=== PATIENT | male | born 1940 | race Caucasian/White ===

== ENCOUNTER 2022-08-14 15:03 | Emergency (ER) | payer MEDICARE, SELFPAY ==
[2022-08-14 15:06] VITALS: BP 118/73; PULSE 66; RESP 16; TEMP 36.4; O2SAT 95; BMI 26.9
--- NOTE | 2022-08-14 15:37 | CTR_ITS ---
PROCEDURE INFORMATION: Exam: CT Abdomen And Pelvis With Contrast Exam date and time: 08/14/2022 5:46 PM Age: 82 years old Clinical indication: Abdominal pain; Acute; Additional info: Abdomina pain TECHNIQUE: Imaging protocol: Computed tomography of the abdomen and pelvis with contrast. Radiation optimization: All CT scans at this facility use at least one of these dose optimization techniques: automated exposure control; mA and/or kV adjustment per patient size (includes targeted exams where dose is matched to clinical indication); or iterative reconstruction. Contrast material: OMNI 350; Contrast volume: 100 ml; Contrast route: INTRAVENOUS (IV); REPORTING DATA: Count of CT and Cardiac NM exams in prior 12 months: This patient has received 0 known CTs and 0 known cardiac nuclear medicine studies in the 12 months prior to the current study. COMPARISON: No relevant prior studies available. RADIATION DOSE METRICS: Total DLP (mGy-cm): 988.53 FINDINGS: Lungs: Calcified granulomas at the lung bases. Diaphragm: There is a small hiatal hernia present. Liver: The liver is unremarkable in appearance. Gallbladder and bile ducts: No calcified gallstones in the gallbladder. No gallbladder wall thickening. No pericholecystic fluid. No biliary dilatation. Pancreas: The pancreas is normal in appearance. No pancreatic duct dilatation. Spleen: Calcified granulomas are noted in the spleen. Adrenal glands: The adrenal glands appear within normal limits. Kidneys and ureters: The kidneys are normal in morphology. No hydronephrosis. No solid mass. Stomach and bowel: The empty stomach demonstrates mural thickening. This may be secondary to underdistention versus nonspecific gastritis. The small bowel is unremarkable as demonstrated. Status post right hemicolectomy. Diverticulosis of the colon. No evidence of acute diverticulitis. Mural thickening of the descending and sigmoid portions of the colon which may indicate mild nonspecific colitis. Appendix: Surgically absent appendix. Intraperitoneal space: No pneumoperitoneum. No significant fluid collection. Vasculature: Atherosclerosis of the abdominal aorta. No aortic aneurysm. Bilateral internal iliac artery aneurysms noted. Right internal iliac artery aneurysm measures 2.8 cm in diameter. Left internal iliac artery aneurysm measures 2.4 cm in diameter. Lymph nodes: Calcified lymph nodes in the lower thorax, consistent with old granulomatous disease. No pathologically enlarged lymph nodes are demonstrated. Urinary bladder: Unremarkable as visualized. Reproductive: Mild enlargement of the prostate gland. Bones/joints: Degenerative lumbar spine changes. No acute osseous abnormality. Soft tissues: Bilateral inguinal hernias, left larger than right, containing only fat. Small umbilical hernia, containing only fat. CT/CT abdomen pelvis w con* [id number] IMPRESSION: 1. The empty stomach demonstrates mural thickening. This may be secondary to underdistention versus nonspecific gastritis. 2. Status post right hemicolectomy. 3. Mural thickening of the descending and sigmoid portions of the colon which may indicate mild nonspecific colitis. 4. Bilateral internal iliac artery aneurysms noted. Right internal iliac artery aneurysm measures 2.8 cm in diameter. Left internal iliac artery aneurysm measures 2.4 cm in diameter. No leak or rupture. 5. Bilateral inguinal hernias, left larger than right, containing only fat. Small umbilical hernia, containing only fat. 6. Findings of old granulomatous disease are identified.
--- NOTE | 2022-08-14 16:07 | ED_ITS ---
Documented by User: Sherman Waters 08/14/22 18:21 HPI - Weakness General: Chief complaint: Weakness Stated complaint: GENERALIZED WEAKNESS Time Seen by Provider: 08/14/22 15:07 History of Present Illness: 82-year-old male presents emergency department via EMS chief complaint of nausea vomiting abdominal pain generalized weakness and fatigue been ongoing for last 4 to 5 days patient had an IV started prior to arrival Zofran and promethazine was provided patient reports nonbilious emesis. He does not recall any recent sick or ill contacts reports low-grade fever at home reports generalized abdominal discomfort with no other associated symptoms. Associated symptoms: Reports nausea and vomiting; Denies chest pain, chills, fever(s) or headache(s) Review of Systems General: Reports: 10 or more systems reviewed and unremarkable except in HPI and below Const: Denies: fever(s), chills, fatigue or malaise Eyes: Denies: change in vision or blurry vision Card: Denies: chest pain or palpitations Resp: Denies: dyspnea or productive cough GI: Reports: abdominal pain, nausea and vomiting : Denies: flank pain Musc: Denies: extremity pain or extremity swelling Skin/Breast: Denies: rash or pruritus Neuro: Denies: headache(s) Psych: Denies: anxiety or depression Kyree/Lymph: Denies: easy bleeding All/Imm: Denies: urticaria, throat swelling or facial swelling Physical Exam Const: COMMON NORMALS: no acute distress, patient oriented x3 and healthy appearing HENMT: COMMON NORMALS: normocephalic and atraumatic HEAD & SCALP: normocephalic and atraumatic Eye: COMMON NORMALS: Equal, round and reactive pupils present and EOMs intact bilaterally PUPIL: Yes Equal, round and reactive pupils present Neck/C-Spine: COMMON NORMALS: full ROM, supple and no JVD Lymph: LYMPHATIC: no lymphadenopathy noted Chest: COMMONS NORMALS: normal inspection of the chest and normal palpation of entire chest wall Resp: COMMON NORMALS: normal respiratory effort, No retractions and clear to auscultation bilaterally EFFORT & INSPECTION: Yes able to speak in complete sentences and Yes symmetric chest movement AUSCULTATION: clear to auscultation bilaterally Cardio: COMMON NORMALS: no JVD, regular rate and regular rhythm RATE: regular rate RHYTHM: regular rhythm GI: COMMON NORMALS: negative for Normal to inspection, nondistended, normoactive bowel sounds present, negative for Soft to palpation and negative for non-tender INSPECTION: Yes normal to inspection PALPATION: No Soft to palpation OTHER: Moderate diffuse abdominal pain noted located mostly to the suprapubic region periumbilical area otherwise soft nontender nondistended. : COMMON NORMALS: Yes no CVA tenderness BLADDER/KIDNEY EXAM: Yes no CVA tenderness Back/Pelvis: COMMON NORMALS: no CVA tenderness Extremity: COMMON NORMALS: normal to inspection and full ROM Neuro: COMMON NORMALS: patient oriented x3, CN's II-XII intact bilaterally, moves all extremities and no focal motor deficits Psych: COMMON NORMALS: mental status grossly normal, Normal thought process present, cooperative and normal affect THOUGHT PROCESS: Normal thought process present Skin: COMMON NORMALS: no rashes or lesions noted GENERAL SKIN EXAM: no rashes or lesions noted Course Vital Signs: Vital signs: Vital Signs Temperature 97.5 F L 08/14/22 15:06 Pulse Rate 64 08/14/22 20:26 Respiratory Rate 16 08/14/22 20:26 Blood Pressure 118/86 08/14/22 20:26 Pulse Oximetry 95 08/14/22 20:26 Oxygen Delivery Me thod Room Air 08/14/22 16:46 MDM - Weakness Medical Decision Making Due to patient's symptoms IV established IV fluids provided for hydration basic lab work and imaging obtained we will continue to follow currently waiting on the regular patient's lab work and imaging getting CT the abdomen pelvis currently patient is having no active emesis on exam lactic acid is normal with only slight white count will continue to follow anticipate subsequent discharge home based upon improvement of the patient's symptoms this patient was signed out to Dr. Singleton at [id number] Lab Data 08/14/22 15:50 08/14/22 15:50 Radiology Impressions Abdomen/Pelvis CT 08/14/22 15:37 IMPRESSION: 1. The empty stomach demonstrates mural thickening. This may be secondary to underdistention versus nonspecific gastritis. 2. Status post right hemicolectomy. 3. Mural thickening of the descending and sigmoid portions of the colon which may indicate mild nonspecific colitis. 4. Bilateral internal iliac artery aneurysms noted. Right internal iliac artery aneurysm measures 2.8 cm in diameter. Left internal iliac artery aneurysm measures 2.4 cm in diameter. No leak or rupture. 5. Bilateral inguinal hernias, left larger than right, containing only fat. Small umbilical hernia, containing only fat. 6. Findings of old granulomatous disease are identified. Laboratory Results WBC 11.5 10^3/uL (4.0-10.0) H 08/14/22 15:50 RBC 4.27 10^6/uL (4.1-5.3) 08/14/22 15:50 Hgb 13.2 g/dL (11.7-16.6) 08/14/22 15:50 Hct 41.3 % (42.0-52.0) L 08/14/22 15:50 MCV 96.7 fl (80-94) H 08/14/22 15:50 MCH 30.9 pg (28.0-34.0) 08/14/22 15:50 MCHC 32.0 g/dL (30.0-36.0) 08/14/22 15:50 RDW 12.6 % (12.1-15.1) 08/14/22 15:50 Plt Count 133 10^3/cmm (130-400) 08/14/22 15:50 MPV 11.8 fL (7.4-10.4) H 08/14/22 15:50 Neut % (Auto) 87.2 % 08/14/22 15:50 Lymph % (Auto) 6.2 % 08/14/22 15:50 [place] % (Auto) 5.0 % 08/14/22 15:50 Eos % (Auto) 0.1 % 08/14/22 15:50 Baso % (Auto) 0.3 % 08/14/22 15:50 Neut # (Auto) 10.00 10^3/uL (1.8-7.7) H 08/14/22 15:50 Lymph # (Auto) 0.7 10^3/uL (0.8-4.8) L 08/14/22 15:50 [place] # (Auto) 0.6 10^3/uL (0.2-0.9) 08/14/22 15:50 Eos # (Auto) 0.0 10^3/uL (0.0-0.8) 08/14/22 15:50 Baso # (Auto) 0.0 10^3/uL (0.0-0.1) 08/14/22 15:50 Nucleated RBC % (auto) 0 % 08/14/22 15:50 Nucleated RBCs # 0.0 /100WBC 08/14/22 15:50 Sodium 140 mmol/L (136-145) 08/14/22 15:50 Potassium 3.8 mmol/L (3.5-5.1) 08/14/22 15:50 Chloride 105 mmol/L (98-107) 08/14/22 15:50 Carbon Dioxide 24 mmol/L (22-29) 08/14/22 15:50 Anion Gap 14.8 (5-19) 08/14/22 15:50 BUN 33 mg/dL (8-23) H 08/14/22 15:50 Creatinine 1.6 mg/dL (0.7-1.2) H 08/14/22 15:50 GFR Calculation Not Reportable 08/14/22 15:50 Glucose 115 mg/dL (65-115) 08/14/22 15:50 Calculated Osmolality 298 mOsm/kg (285-295) H 08/14/22 15:50 Lactate 1.1 mmol/L (0.5-2.2) 08/14/22 15:50 Calcium 8.8 mg/dL (8.5-10.5) 08/14/22 15:50 Total Bilirubin 0.3 mg/dL (0.15-1.2) 08/14/22 15:50 AST 15 U/L (0-40) 08/14/22 15:50 ALT 18 U/L (0-41) 08/14/22 15:50 Alkaline Phosphatase 93 U/L (40-130) 08/14/22 15:50 Troponin T Baseline 27 ng/L (0-15) H 08/14/22 15:50 Troponin T 120 Minute 26.10 ng/L (0-15) H 08/14/22 17:50 Delta Troponin T -0.90 ABS# (0-10) L 08/14/22 17:50 C-Reactive Protein 16.8 mg/L (0.0-4.9) H 08/14/22 15:50 Total Protein 7.0 g/dL (6.6-8.7) 08/14/22 15:50 Albumin 3.5 g/dL (3.5-5.2) 08/14/22 15:50 Globulin 3.5 g/dL (1.3-4.6) 08/14/22 15:50 Lipase 34 U/L (13-60) 08/14/22 15:50 Urine Color Yellow (Yellow) 08/14/22 19:14 Urine Appearance Clear (CLEAR) 08/14/22 19:14 Urine pH 5 (5-7) 08/14/22 19:14 Ur Specific [place] 1.015 (1.005-1.030) 08/14/22 19:14 Urine Protein Neg (Negative) 08/14/22 19:14 Urine Glucose (UA) Norm (Normal) 08/14/22 19:14 Urine Ketones Negative (Negative) 08/14/22 19:14 Urine Blood Trace (Negative) H 08/14/22 19:14 Urine Nitrate Negative (Negative) 08/14/22 19:14 Urine Bilirubin Neg (Negative) 08/14/22 19:14 Prot Sulfosalicylic Acd Negative (Negative) 08/14/22 19:14 Urine Urobilinogen Norm mg/dL (Negative) 08/14/22 19:14 Ur Leukocyte Esterase Negative (Negative) 08/14/22 19:14 Urine RBC 0-4 /hpf (0-2) H 08/14/22 19:14 Urine WBC 0-4 /hpf (0-5) H 08/14/22 19:14 Ur Squamous Epith Cells None /hpf (0-5) 08/14/22 19:14 Amorphous Sediment Not Reportable 08/14/22 19:14 Urine Bacteria None /hpf (NONE) 08/14/22 19:14 Hyaline Casts 0-4 /lpf H 08/14/22 19:14 Urine Mucus 3+ /hpf 08/14/22 19:14 Discharge Plan Discharge Patient Disposition: Home Clinical Impression: Chest pain Condition: Stable Discharge Orders: Discharge ED (Routine); Ordered 08/14/22 Ordered By: Marshall Singleton Referrals: Sergey Suresh [Primary Care Provider] - Discharge Diet: Advance as tolerated Discharge Activity: Resume usual activity Patient Instructions: Chest Pain (ED) Coding Level of Care Code ED Textile Machinery Instructor for Chg Fwd Documented by User: Marshall Singleton MD 08/14/22 21:09 HPI - Weakness General: Chief complaint: Weakness Stated complaint: GENERALIZED WEAKNESS Time Seen by Provider: 08/14/22 15:07 Course Vital Signs: Vital signs: Vital Signs Temperature 97.5 F L 08/14/22 15:06 Pulse Rate 64 08/14/22 20:26 Respiratory Rate 16 08/14/22 20:26 Blood Pressure 118/86 08/14/22 20:26 Pulse Oximetry 95 08/14/22 20:26 Oxygen Delivery Me thod Room Air 08/14/22 16:46 MDM - Weakness Medical Decision Making Due to patient's symptoms IV established IV fluids provided for hydration basic lab work and imaging obtained we will continue to follow currently waiting on the regular patient's lab work and imaging getting CT the abdomen pelvis currently patient is having no active emesis on exam lactic acid is normal with only slight white count will continue to follow anticipate subsequent discharge home based upon improvement of the patient's symptoms this patient was signed out to Dr. Singleton at 1821 Patient presents here with some generalized weakness he does have a urinary tra ct infection likely causing the symptoms he has no signs of sepsis we will start him on IV antibiotics he is to follow-up PCP and return if worsening. Lab Data 08/14/22 15:50 08/14/22 15:50 Radiology Impressions Abdomen/Pelvis CT 08/14/22 15:37 IMPRESSION: 1. The empty stomach demonstrates mural thickening. This may be secondary to underdistention versus nonspecific gastritis. 2. Status post right hemicolectomy. 3. Mural thickening of the descending and sigmoid portions of the colon which may indicate mild nonspecific colitis. 4. Bilateral internal iliac artery aneurysms noted. Right internal iliac artery aneurysm measures 2.8 cm in diameter. Left internal iliac artery aneurysm measures 2.4 cm in diameter. No leak or rupture. 5. Bilateral inguinal hernias, left larger than right, containing only fat. Small umbilical hernia, containing only fat. 6. Findings of old granulomatous disease are identified. Laboratory Results WBC 11.5 10^3/uL (4.0-10.0) H 08/14/22 15:50 RBC 4.27 10^6/uL (4.1-5.3) 08/14/22 15:50 Hgb 13.2 g/dL (11.7-16.6) 08/14/22 15:50 Hct 41.3 % (42.0-52.0) L 08/14/22 15:50 MCV 96.7 fl (80-94) H 08/14/22 15:50 MCH 30.9 pg (28.0-34.0) 08/14/22 15:50 MCHC 32.0 g/dL (30.0-36.0) 08/14/22 15:50 RDW 12.6 % (12.1-15.1) 08/14/22 15:50 Plt Count 133 10^3/cmm (130-400) 08/14/22 15:50 MPV 11.8 fL (7.4-10.4) H 08/14/22 15:50 Neut % (Auto) 87.2 % 08/14/22 15:50 Lymph % (Auto) 6.2 % 08/14/22 15:50 [place] % (Auto) 5.0 % 08/14/22 15:50 Eos % (Auto) 0.1 % 08/14/22 15:50 Baso % (Auto) 0.3 % 08/14/22 15:50 Neut # (Auto) 10.00 10^3/uL (1.8-7.7) H 08/14/22 15:50 Lymph # (Auto) 0.7 10^3/uL (0.8-4.8) L 08/14/22 15:50 [place] # (Auto) 0.6 10^3/uL (0.2-0.9) 08/14/22 15:50 Eos # (Auto) 0.0 10^3/uL (0.0-0.8) 08/14/22 15:50 Baso # (Auto) 0.0 10^3/uL (0.0-0.1) 08/14/22 15:50 Nucleated RBC % (auto) 0 % 08/14/22 15:50 Nucleated RBCs # 0.0 /100WBC 08/14/22 15:50 Sodium 140 mmol/L (136-145) 08/14/22 15:50 Potassium 3.8 mmol/L (3.5-5.1) 08/14/22 15:50 Chloride 105 mmol/L (98-107) 08/14/22 15:50 Carbon Dioxide 24 mmol/L (22-29) 08/14/22 15:50 Anion Gap 14.8 (5-19) 08/14/22 15:50 BUN 33 mg/dL (8-23) H 08/14/22 15:50 Creatinine 1.6 mg/dL (0.7-1.2) H 08/14/22 15:50 GFR Calculation Not Reportable 08/14/22 15:50 Glucose 115 mg/dL (65-115) 08/14/22 15:50 Calculated Osmolality 298 mOsm/kg (285-295) H 08/14/22 15:50 Lactate 1.1 mmol/L (0.5-2.2) 08/14/22 15:50 Calcium 8.8 mg/dL (8.5-10.5) 08/14/22 15:50 Total Bilirubin 0.3 mg/dL (0.15-1.2) 08/14/22 15:50 AST 15 U/L (0-40) 08/14/22 15:50 ALT 18 U/L (0-41) 08/14/22 15:50 Alkaline Phosphatase 93 U/L (40-130) 08/14/22 15:50 Troponin T Baseline 27 ng/L (0-15) H 08/14/22 15:50 Troponin T 120 Minute 26.10 ng/L (0-15) H 08/14/22 17:50 Delta Troponin T -0.90 ABS# (0-10) L 08/14/22 17:50 C-Reactive Protein 16.8 mg/L (0.0-4.9) H 08/14/22 15:50 Total Protein 7.0 g/dL (6.6-8.7) 08/14/22 15:50 Albumin 3.5 g/dL (3.5-5.2) 08/14/22 15:50 Globulin 3.5 g/dL (1.3-4.6) 08/14/22 15:50 Lipase 34 U/L (13-60) 08/14/22 15:50 Urine Color Yellow (Yellow) 08/14/22 19:14 Urine Appearance Clear (CLEAR) 08/14/22 19:14 Urine pH 5 (5-7) 08/14/22 19:14 Ur Specific [place] 1.015 (1.005-1.030) 08/14/22 19:14 Urine Protein Neg (Negative) 08/14/22 19:14 Urine Glucose (UA) Norm (Normal) 08/14/22 19:14 Urine Ketones Negative (Negative) 08/14/22 19:14 Urine Blood Trace (Negative) H 08/14/22 19:14 Urine Nitrate Negative (Negative) 08/14/22 19:14 Urine Bilirubin Neg (Negative) 08/14/22 19:14 Prot Sulfosalicylic Acd Negative (Negative) 08/14/22 19:14 Urine Urobilinogen Norm mg/dL (Negative) 08/14/22 19:14 Ur Leukocyte Esterase Negative (Negative) 08/14/22 19:14 Urine RBC 0-4 /hpf (0-2) H 08/14/22 19:14 Urine WBC 0-4 /hpf (0-5) H 08/14/22 19:14 Ur Squamous Epith Cells None /hpf (0-5) 08/14/22 19:14 Amorphous Sediment Not Reportable 08/14/22 19:14 Urine Bacteria None /hpf (NONE) 08/14/22 19:14 Hyaline Casts 0-4 /lpf H 08/14/22 19:14 Urine Mucus 3+ /hpf 08/14/22 19:14 Discharge Plan Discharge Patient Disposition: Home Clinical Impression: Chest pain Condition: Stable Discharge Orders: Discharge ED (Routine); Ordered 08/14/22 Ordered By: Marshall Singleton Referrals: Sergey Suresh [Primary Care Provider] - Discharge Diet: Advance as tolerated Discharge Activity: Resume usual activity Patient Instructions: Chest Pain (ED) Coding Level of Care Code ED Textile Machinery Instructor for Curt Sanchez
[2022-08-14 16:37] LABS: Basophils % 0.3 %; Eosinophils % 0.1 %; Hematocrit 41.3 % (42.0-52.0); Hemoglobin 13.2 g/dL (11.7-16.6); Lymphocytes # 0.7 10^3/uL (0.8-4.8); Lymphocytes % 6.2 %; Mean Corpuscular Hemoglobin 30.9 pg (28.0-34.0); Mean Corpuscular Volume 96.7 fl (80-94); Mean Platelet Volume 11.8 fL (7.4-10.4); Monocytes # 0.6 10^3/uL (0.2-0.9); Neutrophils % 87.2 %; Nucleated Red Blood Cells % 0 %; Platelet Count 133 10^3/cmm (130-400); Red Blood Count 4.27 10^6/uL (4.1-5.3); Red Cell Distribution Width 12.6 % (12.1-15.1); White Blood Count 11.5 10^3/uL (4.0-10.0)
[2022-08-14] MEDS: sodium chloride 0.9% 1,000 ML 999 ML IV (16:44)
[2022-08-14] MEDS: pantoprazole 40 mg SDV 80 MG IVP (16:45)
[2022-08-14] MEDS: ondansetron 2 mg/ML SDV 2 mL 4 MG IVP (16:45)
[2022-08-14 16:46] VITALS: BP 122/69; PULSE 64; O2SAT 97
[2022-08-14 16:50] LABS: Troponin(5th) Baseline 27 ng/L (0-15)
[2022-08-14 16:52] LABS: Alanine Aminotransferase 18 U/L (0-41); Albumin Level 3.5 g/dL (3.5-5.2); Alkaline Phosphatase 93 U/L (40-130); Anion Gap 14.8 (5-19); Aspartate Amino Transferase 15 U/L (0-40); Blood Urea Nitrogen 33 mg/dL (8-23); C Reactive Protein 16.8 mg/L (0.0-4.9); Calcium 8.8 mg/dL (8.5-10.5); Carbon Dioxide 24 mmol/L (22-29); Chloride 105 mmol/L (98-107); Globulin 3.5 g/dL (1.3-4.6); Glucose 115 mg/dL (65-115); Lipase 34 U/L (13-60); Osmolality Calculated 298 mOsm/kg (285-295); Potassium 3.8 mmol/L (3.5-5.1); Sodium 140 mmol/L (136-145); Total Bilirubin 0.3 mg/dL (0.15-1.2)
[2022-08-14 16:53] LABS: Lactate (Lactic Acid level) 1.1 mmol/L (0.5-2.2)
[2022-08-14] MEDS: iohexol 350 mg/mL 500 mL Btl (per mL) IV (17:50)
[2022-08-14 19:02] VITALS: BP 124/66; PULSE 66; RESP 16; O2SAT 96
[2022-08-14 19:45] LABS: Add Urine Microscopic? YES; Bilirubin Urine Neg (Negative); Blood Urine Trace (Negative); Glucose Urine UA Norm (Normal); Ketones Urine Negative (Negative); Leukocyte Esterase Urine Negative (Negative); Nitrate Urine Negative (Negative); Protein Urine Neg (Negative); Specific Gravity, Urine 1.015 (1.005-1.030); Sulfosalicylic Acid Urine Negative (Negative); Urine Appearance Clear (CLEAR); Urine Color Yellow (Yellow); Urobilinogen Urine Norm (Negative); pH Urine 5 (5-7)
[2022-08-14 19:46] LABS: Add Urine Culture? No; Hyaline Casts Urine 0-4 /lpf; Mucus Urine 3+ /hpf; RBC Urine 0-4 /hpf (0-2); WBC Urine 0-4 /hpf (0-5)
[2022-08-14 20:26] VITALS: BP 118/86; PULSE 64; RESP 16; O2SAT 95
== END 2022-08-14 20:27 | disposition home or self-care (01) ==
PROVIDERS: Emergency Medicine; Emergency Provider Emergency Medicine; PCP Family Medicine
DX: R07.9 Chest pain, unspecified (principal)
CPT/HCPCS: 36415; 74177; 80053; 81001; 83605; 83690; 84484; 85025; 86140; 96361; 96374; 96375; 99285; C9113; J2405; J7030; Q9967

== ENCOUNTER 2025-01-27 18:15 | Emergency (ER) | payer MEDICARE, MEDICAID, SELFPAY ==
[2025-01-27 18:24] VITALS: BP 118/70; PULSE 66; RESP 16; TEMP 37.1; O2SAT 97
--- OUTSIDE RECORDS SUMMARY | 2025-01-27 18:42 | XMS_ITS | Clinical Summary ---
Author Organization [facility] Address [address] Castrejon: Epic Prelude ADT [place] [id number] Care Team Providers Care Meat Cutting Teacher Name Role Phone Unavailable Primary Care Provider Unavailabl e Allergies Active Allergy Reactions Criticality Noted Date Comments Gabapentin Confusion High 06/14/2019 Made him confused and agitated. Glucosamine (Bulk) Swelling Low 12/13/2021 Medications albuterol sulfate (VENTOLIN HFA) 90 mcg/Actuation inhalerIndication s:Wheezing Take 2 Puffs by inhalation every 4 hours as needed for Shortness of Breath or Wheezing (cough). 18 Gram 0 1 Active aspirin (ECOTRIN EC) 81 mg Tablet, Delayed Release (E.C.) Take 81 mg by mouth daily. Active inhalational spacing device SpacerIndications :Wheezing For use with albuterol inhaler. 1 Device 0 5 Active omeprazole (PriLOSEC) 20 mg Capsule, Delayed Release(E.C.) Take 1 Capsule (20 mg) by mouth daily. 90 Capsule 3 2 Active lisinopriL (PRINIVIL) 10 mg tabletIndications :Primary hypertension Take 1 Tablet (10 mg) by mouth daily. (PHARM - NEW STRENGTH. D/C 20 MG) 90 Tablet 3 2 Active furosemide (LASIX) 40 mg tabletIndications :Hypertensive kidney disease with stage 3a chronic kidney disease (CMS/HCC),Lymphed essie of both lower extremities Take 1 Tablet (40 mg) by mouth daily. 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) 12/16/2021 Primary hypertension 12/13/2021 Obesity (BMI 30.0-34.9) 10/20/2020 Primary osteoarthritis involving multiple joints 10/20/2020 Lymphedema of both lower extremities 10/19/2020 Pain in right lower leg 11/15/2019 Postherpetic neuralgia 11/15/2019 Prediabetes 08/25/2018 Urge incontinence of urine 09/20/2014 Personal history of colon cancer 01/07/2014 S/P right hemicolectomy 01/25/2013 Overview (08/10/2020): 01/25/2013 Chronic kidney disease, stage III (moderate) Other chest pain 12/30/2012 Anemia 01/24/2012 GERD (gastroesophageal reflux disease) 0 Hypertensive kidney disease with stage 3b chronic kidney disease 04/18/2009 Foot pain 04/18/2009 Encounters Date Type Department Care Team Description 12/28/2024 External Device Data [facility] ABSTRACTION Provider, Abstract 11/30/2024 External Device Data [facility] Provider, Abstract 11/23/2024 External Device Data [facility] Provider, Abstract 10/27/2024 External Device Data [facility] Provider, Abstract from Last 3 Months Immunizations Immunization Administration Dates Next Due (PNEUMOVAX 23)(50 YRS UP) PN EUMOCOCCAL POLYSACCHARIDE (PPV23) 0.5 ML, IM 03/24/2015 (PREVNAR 13)(6 WKS UP) PNEUM OCOCCAL CONJUGATE (PCV13) 0.5 ML, IM 02/24/2018 INFLUENZA VACCINE QUADRIVALE NT 3 YR UP PF IM 02/24/2018,06/27/2016 INFLUENZA VACCINE QUADRIVALE NT ADJ 65 YR UP PF IM 02/21/2022 Influenza Vaccine High Dose 65+ Yrs IM 9,05/26/2017,03/21/2015 Family History Medical History Relation Name Comments Colon Cancer Sister Relation Name Status Comments Sister Social History Tobacco Use Types Packs/Day Years Used Date Smoking Tobacco: Never Smokeless Tobacco: Never Tobacco Cessation:Counseling Given: No Alcohol Use Standard Drinks/Week Comments No 0 (1 standard drink = 0.6 oz pur e alcohol) Financial Resource Strain Answer Date R ecorded How hard is it for you to pa y for the very basics like food, housing, medical care, and heating? Not hard at all 02/21/2022 Food Insecurity Answer Date Recorded In the past 12 months, have you worried that your food would run out before you had money to buy more? Never true 02/21/2022 In the past 12 months, did y ou run out of food and didn't have money to buy more? Never true 02/21/2022 Transportation Needs Answer Date Record ed In the past 12 months, has l ack of transportation kept you from medical appointments or from getting medications? No 02/21/2022 Lack of Transportation (Non-Medical) Not on file 02/21/2022 Sex and Gender Information Value Date Recorded Sex Assigned at Not on file Legal Sex Male 9:52 AM UNDERWRITING ACCOUNT REPRESENTATIVE Gender Identity Not on file Sexual Orientation Not on file Last Filed Vital Signs Vital Sign Reading Time Taken Comments Blood Pressure 102/68 02/21/2022 10:49 AM UNDERWRITING ACCOUNT REPRESENTATIVE Pulse 58 02/21/2022 10:49 AM UNDERWRITING ACCOUNT REPRESENTATIVE Temperature 35.9 C (96.7 F) 02/21/2022 10:49 AM UNDERWRITING ACCOUNT REPRESENTATIVE Respiratory Rate 16 02/21/2022 10:49 AM UNDERWRITING ACCOUNT REPRESENTATIVE Oxygen Saturation 90% 02/21/2022 10:49 AM UNDERWRITING ACCOUNT REPRESENTATIVE Inhaled Oxygen Concentration - - Weight 86.6 kg (191 lb) 02/21/2022 10:49 AM UNDERWRITING ACCOUNT REPRESENTATIVE Height 167.6 cm (5' 6 ) 02/21/2022 10:49 AM UNDERWRITING ACCOUNT REPRESENTATIVE Body Mass Index 30.83 02/21/2022 10:49 AM UNDERWRITING ACCOUNT REPRESENTATIVE Plan of Treatment Health Maintenance Due Date Last Done Comments DTAP/TDAP/TD VACCINES (1 - Tdap) 1960 ZOSTER VACCINE (1 of 2) 08/06/1991 RSV VACCINE (60+ or ) (1 - 1-dose 75+ series) 2016 COLORECTAL SCREENING 02/20/2022 02/20/2017, 12/18/19 13 INFLUENZA VACCINE (#1) 2024 , 02/15/2019, 02/24/2018, Additional history exists PNEUMOCOCCAL VACCINE 50+ YEARS Completed 02/24/2018 , 03/24/[address] [place] [address] [place] [address]
--- OUTSIDE RECORDS SUMMARY | 2025-01-27 18:42 | XMS_ITS | Clinical Summary ---
Author Organization [facility] Address [address] [address] Care Team Providers Care Sex Offender Treatment Professional Name Role Phone Sergey Suresh MD Primary Care Provider [phone] Allergies Active Allergy Reactions Criticality Noted Date Comments Gabapentin Confusion High 06/14/2019 Made him confused and agitated. Medications nitroglycerin (NITROSTAT) 0.[address] 1 Tab under tongue every 5 minutes as needed for Chest Pain. 25 Tab 1 3 Active Additional Information Patient taking differently:0.4 mg Sublingual EVERY 5 MINUTES PRN, Chest Pain,Indications: has never yet the need to take one, Reported on 09/20/2014 CYANOCOBALAMIN, VITAMIN B-12, (VITAMIN B-12 ORAL) Take by mouth. Activ e inhalational spacing device (MICROCHAMBER) SpacerIndication s:Wheezing For use with albuterol inhaler. 1 Device 0 5 Active capsaicin (ZOSTRIX) 0.025 % Cream Apply to affected area 3 times daily. 0 Active omeprazole (PriLOSEC) 20 mg Capsule, Delayed Release(E.C.) Take 1 Capsule (20 mg) by mouth daily. 30 Capsule 0 Active HYDROcodone-acet aminophen (NORCO) 5-325 mg tabletIndication s:Colon cancer (CMS/HCC) Take 1 Tablet by mouth every 4 hours as needed for Pain, Moderate. 30 Tablet 0 Active lisinopriL (PRINIVIL) 20 mg tabletIndication s:Essential hypertension with goal blood pressure less than 140/90 TAKE 1 TABLET BY MOUTH DAILY TO LOWER BLOOD PRESSURE 90 Tablet 1 1 Active VENTOLIN HFA 90 mcg/actuation inhalerIndicatio ns:Wheezing Take 2 Puffs by inhalation every 4 hours as needed for Shortness of Breath or Wheezing (cough). 18 Gram 1 Active Active Problems Problem Noted Date Diagnosed Date Pain in right lower leg 11/15/2019 Postherpetic neuralgia 11/15/2019 Prediabetes 08/25/2018 Urge incontinence of urine 09/20/2014 Personal history of colon cancer 01/07/2014 S/P right hemicolectomy 01/25/2013 Overview (08/14/2018): 01/25/2013 Chronic kidney disease, stage III (moderate) Other chest pain 12/30/2012 Anemia 01/24/2012 GERD (gastroesophageal reflux disease) 0 Hypertensive kidney disease with chronic kidney disease stage III 04/18/2009 Foot pain 04/18/2009 Immunizations Immunization Administration Dates Next Due (PNEUMOVAX 23)(50 YRS UP) PN EUMOCOCCAL POLYSACCHARIDE (PPV23) 0.5 ML, IM 03/24/2015 (PREVNAR 13)(6 WKS UP) PNEUM OCOCCAL CONJUGATE (PCV13) 0.5 ML, IM 02/24/2018 INFLUENZA VACCINE QUADRIVALE NT 3 YR UP PF IM 02/24/2018,06/27/2016 Influenza Vaccine High Dose 65+ Yrs IM 9,05/26/2017,03/21/2015 Family History Medical History Relation Name Comments Colon Cancer Sister Relation Name Status Comments Sister Social History Tobacco Use Types Packs/Day Years Used Date Smoking Tobacco: Never Smokeless Tobacco: Never Tobacco Cessation:Counseling Given: No Alcohol Use Standard Drinks/Week Comments No 0 (1 standard drink = 0.6 oz pur e alcohol) Sex and Gender Information Value Date Recorded Sex Assigned at Not on file 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 Gender Identity Not on file Sexual Orientation Not on file Occupation Industry Job Start Date Job End Date Not on file Not on file Not on file Not on file Last Filed Vital Signs Vital Sign Reading Time Taken Comments Blood Pressure 132/60 11/15/2019 8:13 AM CDT Pulse 60 11/15/2019 8:13 AM CDT Temperature 36.4 C (97.6 F) 11/15/2019 8:13 AM CDT Respiratory Rate 16 11/15/2019 8:13 AM CDT Oxygen Saturation 95% 11/15/2019 8:13 AM CDT Inhaled Oxygen Concentration - - Weight 85.3 kg (188 lb) 11/15/2019 8:13 AM CDT Height 167.6 cm (5' 6 ) 11/15/2019 8:13 AM CDT Body Mass Index 30.34 11/15/2019 8:13 AM CDT Plan of Treatment Health Maintenance Due Date Last Done Comments DTAP/TDAP/TD VACCINES (1 - Tdap) 1960 ZOSTER VACCINE (1 of 2) 08/06/1991 RSV VACCINE (60+ or ) (1 - 1-dose 75+ series) 2016 COLORECTAL SCREENING 02/20/2022 02/20/2017, 02/20/2017, 02/23/2014, Additional history exists [place] Preventative Visit/Annual Wellness Visit 04/14/2024 12/13/2021, 02/25/2019, 08/26/2017 INFLUENZA VACCINE (#1) 2024 9, 02/24/2018, 05/26/2017, Additional history exists PNEUMOCOCCAL VACCINE 50+ YEARS Completed 02/24/2018 , 03/24/2015 Procedures Procedure Name Priority Date/Time Associated Diagnosis Comments ENDOSCOPY, COLON, DIAGNOSTIC Routine 12/17/2012 9:35 AM CDT GI bleed Anemia from Last 3 Months or Most Recently Relevant to Health Maintenance Insurance [employer] [id number] HMO Advance Directives For more information, please contact: [phone] * Full Code (Latest Code Status on File) Date Activated Date Inactivated Comments 02/17/2014 8:34 AM 02/17/2014 11:54 AM * Full Code Date Activated Date Inactivated Comments 01/25/2013 2:03 PM 01/29/2013 6:03 PM * Full Code Date Activated Date Inactivated Comments 01/25/2013 9:30 AM 01/25/2013 2:03 PM * Full Code Date Activated Date Inactivated Comments 01/25/2013 7:34 AM 01/25/2013 9:30 AM Care Teams Sex Offender Treatment Professional Relationship Specialty Start Date End Date Sergey Suresh MD [address] [place] [phone] PCP - General Family Practice 02/27/15
[2025-01-27 21:22] VITALS: BP 106/73; PULSE 69; TEMP 36.9; O2SAT 100
--- NOTE | 2025-01-27 21:28 | USR_ITS ---
PROCEDURE INFORMATION: Exam: US Duplex Left Lower Extremity Veins, Limited Exam date and time: 01/27/2025 9:43 PM Age: 84 years old Clinical indication: Edema, localized; Lower extremity, left; Additional info: Swelling, redness TECHNIQUE: Imaging protocol: Real-time duplex ultrasound of the left extremity with 2-D hicks scale, color Doppler flow and spectral waveform analysis including responses to compression and other maneuvers (when performed) with image documentation. Limited exam focused on the left lower extremity veins. COMPARISON: CT abdomen pelvis w con* [id number] 08/14/2022 5:46 PM FINDINGS: Left deep veins: Unremarkable. The common femoral, femoral, proximal profunda femoral and popliteal veins are patent without thrombus. Normal Doppler waveforms. Normal compressibility and/or augmentation response. Superficial veins: Greater saphenous vein at the saphenofemoral junction is patent without thrombus. Soft tissues: Unremarkable. US/CV venous duplex [facility] [id number] IMPRESSION: No evidence of deep vein thrombosis.
--- NOTE | 2025-01-27 21:41 | ED_ITS ---
HPI - Skin/Abscess/Foreign Bdy 2 General: Chief complaint: Skin/Abscess/Foreign Body Stated complaint: rash left leg Time Seen by Provider: 01/27/25 20:56 Source: family Mode of arrival: EMS Limitations: other (Dementia) History of Present Illness: Patient is an 84-year-old male who presents to the emergency department by ambulance from alf due to swelling to left lower extremity. [facility] staff had reported that the symptoms began yesterday and associated with rash along the entirety left lower extremity. Patient also has been running intermittent fevers. Otherwise patient has had no vomiting or nausea, and has been acting baseline. He does have a history of dementia. He is reporting mild pain at this time. His vitals are stable at this time. Patient cannot provide any review of systems secondary to his dementia. MD complaint: rash and other (Left lower extremity swelling) Onset (ago): day(s) Related Data Previous Rx's ?Medication ?Instructions ?Recorded amoxicillin 875 mg-potassium 1 tab PO BID 10 days #20 tabs 01/27/25 clavulanate 125 mg tablet Allergies Allergy/AdvReac Type Severity Reaction Status Date / Time No Known Allergies Allergy Verified 08/14/22 15:15 Review of Systems 2 General: Reports: ROS unobtainable due to medical condition (dementia) Physical Exam 2 Const: COMMON NORMALS: patient oriented x3 and alert O RIENTATION/CONSCIOUSNESS: Yes awake OTHER: Nontoxic-appearing, at baseline mentation HENMT: COMMON NORMALS: normocephalic and atraumatic HEAD & SCALP: n ormocephalic and atraumatic Neck/C-Spine: COMMON NORMALS: full ROM, no lymphadenopathy, supple and no meningeal signs Resp: COMMON NORMALS: normal respiratory effort, No use of accessory muscles and clear to auscultation bilaterally AUSCULTATION: clear to auscultation bilaterally Cardio: COMMON NORMALS: regular rate and regular rhythm RATE: regular rate RHYTHM: regular rhythm Extremity: NARRATIVE EXTREMITY EXAM: The left lower extremity has 2+ edema and there is scattered erythema and warmth from the ankle to just above the knee. Distal pulses are palpable. Distal sensations intact and he has intact strength. Neuro: COMMON NORMALS: patient oriented x3, moves all extremities, no focal motor deficits and no sensory deficits noted SENSORIUM/ORIENTATION: Yes alert MENINGEAL SIGNS: Yes no meningeal signs Course 2 Vital Signs: Vital signs: Vital Signs Temperature 98.4 F 01/27/25 21:22 Pulse Rate 69 01/27/25 21:22 Respiratory Rate 16 01/27/25 18:24 Blood Pressure 106/73 01/27/25 21:22 Pulse Oximetry 100 01/27/25 21:22 Oxygen Delivery Me thod Room Air 01/27/25 21:22 MDM - Skin/Abscess/Foreign Bdy Medicial Decision Making Patient presents from alf, sent by ambulance for left lower extremity swelling and redness and warmth for the past day or so. Patient is demented, does not provide any review of systems or history. It is noted that he has been running fevers at the alf, but has been at baseline mentation. He arrives with stable vitals. There is diffuse left lower extremity swelling and erythema, pulses are palpable distally. Ultrasound does not reveal any acute clots. Labs obtained, no leukocytosis but there is elevation in ESR and CRP and clinically this patient is presenting with an acute cellulitis of left lower extremity. Lactic acid was negative, blood cultures had been obtained preemptively. Spoke to hospitalist Dr. Barry, agrees that this can treat outpatient with Augmentin and give return precautions to family. Patient is given Rocephin here in the ED and will discharge back to alf on p.o. Augmentin. Family is comfortable with this plan. Lab Data 01/27/25 21:07 01/27/25 21: Radiology Impressions Venous Duplex 01/27/25 21:28 IMPRESSION: No evidence of deep vein thrombosis. Laboratory Results WBC 10.94 10^3/uL (3.29-11.43) 01/27/25 21: RBC 3.76 10^6/uL (3.85-5.65) L 01/27/25 21: Hgb 11.10 g/dL (11.27-16.99) L 01/27/25 21: Hct 35.6 % (37-53) L 01/27/25 21: MCV 94.7 fl (82-101) 01/27/25 21: MCH 29.5 pg (27-33) 01/27/25 21: MCHC 31.2 g/dL (30-55) 01/27/25 21: RDW 13.9 % (12.1-15.1) 01/27/25 21:07 Plt Count 144 10^3/cmm (157-399) L 01/27/25 21:07 MPV 11.6 fL (7.4-10.4) H 01/27/25 21:07 Neut % (Auto) 76.6 % 01/27/25 21:07 Lymph % (Auto) 15.1 % 01/27/25 21:07 [place] % (Auto) 6.0 % 01/27/25 21:07 Eos % (Auto) 1.6 % 01/27/25 21:07 Baso % (Auto) 0.2 % 01/27/25 21:07 Neut # (Auto) 8.37 10^3/uL (1.8-7.7) H 01/27/25 21:07 Lymph # (Auto) 1.7 10^3/uL (0.8-4.8) 01/27/25 21:07 [place] # (Auto) 0.7 10^3/uL (0.2-0.9) 01/27/25 21:07 Eos # (Auto) 0.2 10^3/uL (0.0-0.8) 01/27/25 21:07 Baso # (Auto) 0.0 10^3/uL (0.0-0.1) 01/27/25 21:07 Nucleated RBC % (auto) 0 % 01/27/25 21:07 Nucleated RBCs # 0.0 /100WBC 01/27/25 21:07 ESR 20 mm/hr (0-10) H 01/27/25 21:07 Sodium 142 mmol/L (136-145) 01/27/25 21:07 Potassium 4.2 mmol/L (3.5-5.1) 01/27/25 21:07 Chloride 105 mmol/L (98-107) 01/27/25 21:07 Carbon Dioxide 23 mmol/L (22-29) 01/27/25 21:07 Anion Gap 18.2 (5-19) 01/27/25 21:07 BUN 50 mg/dL (8-23) H 01/27/25 21:07 Creatinine 1.7 mg/dL (0.7-1.2) H 01/27/25 21:07 GFR Calculation Not Reportable 01/27/25 21:07 Glucose 104 mg/dL (65-115) 01/27/25 21:07 Calculated Osmolality 308 mOsm/kg (285-295) H 01/27/25 21:07 Lactic Acid 0.8 mmol/L (0.5-2.2) 01/27/25 21:07 Calcium 8.8 mg/dL (8.5-10.5) 01/27/25 21:07 Total Bilirubin 0.4 mg/dL (0.15-1.2) 01/27/25 21:07 AST 19 U/L (0-40) 01/27/25 21:07 ALT 13 U/L (0-41) 01/27/25 21:07 Alkaline Phosphatase 91 U/L (40-130) 01/27/25 21:07 C-Reactive Protein 169.4 mg/L (0.0-4.9) H 01/27/25 21:07 Total Protein 8.1 g/dL (6.6-8.7) 01/27/25 21:07 Albumin 3.5 g/dL (3.5-5.2) 01/27/25 21:07 Globulin 4.6 g/dL (1.3-4.6) 01/27/25 21:07 All radiology interpretation(s) finalized by discharge Discharge Plan Discharge Patient Disposition: Home Clinical Impression: Cellulitis Qualifiers: Site of cellulitis: extremity Site of cellulitis of extremity: lower extremity Laterality: left Qualified Code(s): L03.116 - Cellulitis of left lower limb Condition: Stable Prescriptions: New amoxicillin-pot clavulanate 875-125 mg tablet 1 tab PO BID 10 Days Qty: 20 0RF Discharge Orders: Discharge ED (Routine); Ordered 01/27/25 Ordered By: Sergey Shoemaker Referrals: Sergey Suresh [Primary Care Provider, [facility]] Patient Instructions: Patient Portal & [place] Instructions Activity Restrictions/Additional Instructions: Cellulitis Discharge Instructions You have been diagnosed with cellulitis (a skin infection) of your left lower leg. You will be taking Augmentin (amoxicillin-clavulanate) twice a day for 10 days to treat the infection. Please follow these instructions to help you recover safely: Medication Instructions - Take Augmentin exactly as prescribed, even if you start to feel better. Do not skip doses. - If you miss a dose, take it as soon as you remember. If it is almost time for your next dose, skip the missed dose?do not double up. - Common side effects include upset stomach or diarrhea. If you develop severe diarrhea, stop the medication and call your doctor. Wound and Skin Care - Keep the affected leg clean and dry. - You may gently wash the area with soap and water, then pat dry. - Elevate your leg when sitting to help reduce swelling. Activity - Rest as needed, but gentle movement is encouraged to help circulation. - Avoid standing for long periods until swelling and redness improve. Strict Return Precautions Call your doctor or go to the emergency room immediately if you notice any of the following: - Fever over 101?F (38.3?C) or chills - Increasing redness, swelling, or pain in your leg - New blisters, black or purple skin, or pus - Red streaks spreading up your leg - Trouble breathing, chest pain, or confusion - No improvement or worsening after 2-3 days of antibiotics Follow-Up - Schedule a follow-up appointment as directed, usually within 5-7 days, to check your progress. - If you have kidney problems or other health issues, let your doctor know, as older adults may need extra monitoring. Prevention - Keep your skin moisturized and protect it from injury. - Report any new skin changes or wounds promptly. If you have any questions or concerns, please contact your healthcare provider. Print Language: Romanian Coding Level of Care Code ED [facility]ip[facility] Worker for Curt Sanchez
[2025-01-27 21:45] LABS: Hematocrit 35.6 % (37-53); Hemoglobin 11.10 g/dL (11.27-16.99); Mean Corpuscular HGB Conc 31.2 g/dL (30-55); Mean Corpuscular Hemoglobin 29.5 pg (27-33); Mean Corpuscular Volume 94.7 fl (82-101); Nucleated Red Blood Cells % 0 %; Platelet Count 144 10^3/cmm (157-399); Red Blood Count 3.76 10^6/uL (3.85-5.65); White Blood Count 10.94 10^3/uL (3.29-11.43)
[2025-01-27 22:38] LABS: Alanine Aminotransferase 13 U/L (0-41); Albumin Level 3.5 g/dL (3.5-5.2); Alkaline Phosphatase 91 U/L (40-130); Anion Gap 18.2 (5-19); Aspartate Amino Transferase 19 U/L (0-40); Blood Urea Nitrogen 50 mg/dL (8-23); Calcium 8.8 mg/dL (8.5-10.5); Carbon Dioxide 23 mmol/L (22-29); Chloride 105 mmol/L (98-107); Creatinine Clr Calc Pharmacy 37.2955; Globulin 4.6 g/dL (1.3-4.6); Glucose 104 mg/dL (65-115); Osmolality Calculated 308 mOsm/kg (285-295); Potassium 4.2 mmol/L (3.5-5.1); Sodium 142 mmol/L (136-145); Total Protein 8.1 g/dL (6.6-8.7)
[2025-01-27 22:39] LABS: Lactic Sepsis W/Reflex 0.8 mmol/L (0.5-2.2)
[2025-01-27] MEDS: cefTRIAXone 1,000 mg SDV 1000 MG IVP (23:15)
[2025-01-27 23:37] VITALS: BP 98/60; PULSE 62; O2SAT 93
[2025-01-27 23:58] VITALS: BP 105/66; PULSE 66; O2SAT 93
== END 2025-01-28 | disposition home or self-care (01) ==
PROVIDERS: Emergency Provider Physician Assistant; PCP Family Medicine
DX: L03.116 Cellulitis of left lower limb (principal)
CPT/HCPCS: 36415; 80053; 83605; 85025; 85651; 86140; 87040; 93971; 96361; 96374; 96375; 99285; J0696; J1100; J7030; J9999